=== PATIENT | male | born 1955 | race Caucasian/White ===

== ENCOUNTER 2023-08-30 08:29 | Outpatient (AMB) | payer BC, SELFPAY ==
--- NOTE | 2023-08-30 08:33 | MHC.OFFVIS ---
Intake Vital Signs 08/30/23 08:34 Height 5 ft 7 in Weight 284 lb 6.341 oz BMI 44.5 BP 165/78 H Blood Pressure Location Lt brachial Position Sitting Pulse 86 Pulse Source Pulse Oximeter Pulse Oximetry (%) 96 Oxygen Delivery Method Room Air Intake Visit Reasons: Repeat Colonoscopy Intake Note: New patient here for repeat colonoscopy, no concerns Information Interpreted: non-clinical & clinical Accompanied by: Self / Same As Patient Allergies No Known Allergies Allergy (Verified 08/30/23 08:42) Medication List - Last Reconciled 08/30/23 by MARYA Mejia celecoxib (Celebrex) 50 mg PO BID lisinopril 40 mg PO DAILY omeprazole 40 mg PO DAILY HPI Repeat Colonoscopy HPI Details 67-year-old male with past medical history GERD, Downey's diagnosed on upper endoscopy, tubular adenoma is here today for initial consultation. Patient states that he was seen by GI at [facility] and had colonoscopy in June. Patient was found to have tubular adenoma, however he had suboptimal prep and recommendation was to repeat colonoscopy in few months. Patient opted not to go back there and made an appointment with our office. Patient was also diagnosed with Downey's esophagus on upper endoscopy and was placed on omeprazole. Patient continues to have epigastric discomfort and occasional dyspepsia without dysphagia or odynophagia. Patient denies any nausea or vomiting. Patient denies any melena, hematochezia, unintentional weight loss or ribbon like stools. No no family history of colorectal cancer. Not on any anticoagulation medication. Denies history of sleep apnea. Patient reports that he had no trouble with anesthesia during his last procedure. [facility] Medical History (Updated 08/30/23 @ 19:38 by MARYA Mejia) Tubular adenoma of colon Family History (Updated 08/30/23 @ 08:48 by Codie Hernández MA) Brother Bone cancer Review of Systems Const Denies weight gain and Denies weight loss ENT Reports no additional complaints, Denies dysphagia and Denies odynophagia Card Reports no additional complaints Resp Reports no additional complaints GI Denies abdominal pain, Denies belching, Denies melena, Denies bloating, Denies change in bowel habits, Denies dysphagia, Denies excessive flatus, Denies dyspepsia, Reports heartburn, Denies diarrhea, Denies loose stools, Denies nausea, Denies odynophagia and Denies vomiting Reports no additional complaints Musc Reports no additional complaints Neuro Reports no additional complaints Psych Reports no additional complaints Endo Reports no additional complaints Physical Exam Vital Signs: Last Vital Signs Pulse 86 08/30/23 08:34 BP 165/78 H 08/30/23 08:34 Pulse Ox 96 08/30/23 08:34 Oxygen Delivery Method Room Air 08/30/23 08:34 BMI result Body Mass Index 44.5 Const General: healthy appearing and no acute distress Nutritional Appearance: obese Orientation/consciousness: patient oriented x3 Resp Effort & Inspection: normal respiratory effort, able to speak in complete sentences, no tracheal deviation and symmetric chest movement Auscultation: clear to auscultation bilaterally Cardio Rate: regular rate GI Inspection: Yes normal to inspection, No distended and Yes obesity Palpation (GI): Soft to palpation, not firm, nontender and No hepatosplenomegaly present Auscultation: normal bowel sounds General: Yes no CVA tenderness Back/Spine/Pelvis Back: no CVA tenderness Skin General skin exam: elasticity normal, turgor normal and dry skin Neuro General: patient oriented x3 Psych Appearance: grossly normal Mental Status: mental status grossly normal Assessment & Plan Assessment & Plan (1) Tubular adenoma of colon: Code(s): D12.6 - Benign neoplasm of colon, unspecified (2) Encounter for colonoscopy due to history of adenomatous colonic polyps: Code(s): Z12.11 - Encounter for screening for malignant neoplasm of colon; Z86.010 - Personal history of colonic polyps (3) Constipation: Code(s): K59.00 - Constipation, unspecified Qualifiers: Constipation type: slow transit constipation Qualified Code(s): K59.01 - Slow transit constipation Plan Discussed with patient the importance of good bowel prep before his next procedure. Patient will be switched from omeprazole to pantoprazole and will call the office if he will continue to have symptoms. Patient might need to be placed on famotidine at bedtime if his symptoms get worse at night time. No need to repeat upper endoscopy till June of 2026 unless patient is symptomatic. As mentioned above in HPI patient had tubular adenoma in June on colonoscopy however suboptimal prep and patient was recommended to return for colonoscopy. Patient opted to schedule colonoscopy at [facility] wishes not to go back to [facility]. What to expect before during and after procedure discussed with patient. Patient will do Dulcolax for 1 week before procedure every evening except for day before procedure for tablets of Dulcolax followed by split MiraLax prep. No cardiac or respiratory symptoms. No issues with anesthesia in the past. Not on any anticoagulation medication. No history of sleep apnea. I will see patient after the procedure, sooner on as needed basis. Patient is agreeable to this plan and verbalizes understanding of instructions. He was given the opportunity to ask questions and all questions answered. Thank you for allowing me to participate in his care Medications: New bisacodyl (Dulcolax (bisacodyl)) Start taking 2 tablet every night 7 days before the procedure and 1 day before procedure take 4 tablets at noon time followed by MiraLax prep 10 mg (2 x 5 mg) PO BEDTIME 16 tabs 0RF Z12.11 - Encounter for screening for malignant neoplasm of colon polyethylene glycol 3350 (Miralax) As directed by gastroenterology department at [facility] 238 grams PO ONCE 238 grams 0RF Z12.11 - Encounter for screening for malignant neoplasm of colon pantoprazole take one tablet half an hour before breakfast 40 mg PO DAILY 30 tabs 2RF K21.9 - Gastro-esophageal reflux disease without esophagitis Coding Level of Care Code New Pt Level 4 (99244) Diagnoses Tubular adenoma of colon D12.6 Encounter for colonoscopy due to history of adenomatous colonic polyps Z12.11; Z86.010 Slow transit constipation K59.01 Constipation type: slow transit constipation Time Spent (min) 45 Comment 30 minutes spent with patient and additional 15 minutes spent reviewing his records
[2023-08-30 08:34] VITALS: BP 165/78; PULSE 86; O2SAT 96; BMI 44.5
== END 2023-08-30 09:15 | disposition home or self-care (01) ==
PROVIDERS: PCP Internal Medicine; Visit Provider Nurse Practitioner Family
DX: D12.6 Benign neoplasm of colon, unspecified (principal); Z12.11 Encounter for screening for malignant neoplasm of colon; Z86.010 Personal history of colon polyps; K59.01 Slow transit constipation
CPT/HCPCS: 99204

== ENCOUNTER → 2023-08-30 08:29 | Outpatient (BNVA) | payer BC, SELFPAY | PROVIDERS: PCP Internal Medicine; Visit Provider Nurse Practitioner Family ==